=== PATIENT | male | born 1945 | race Caucasian/White ===

== ENCOUNTER 2018-09-04 21:29 | Inpatient (IN) | payer MEDICARE, MEDICAID, OTHER ==
[~2018-09-04] VITALS: Ht 185.4 cm; Wt 135.4 kg
[2018-09-04] MEDS ORDERED: PROPOFOL 100 ML IV ONE (21:53)
--- NOTE | 2018-09-04 21:57 | NUR ---
PT BROUGHT IN BY [facility] FROM [facility] WITH C/O COPD EXACERBATION, PT INTUBATED SEE MD BAIRON AT BEDSIDE, PT IN NAD AT THIS TIME
[2018-09-04] MEDS ORDERED: PROPOFOL 100 ML IV PRN (22:00)
[2018-09-04] MEDS ORDERED: PLEASE ENTER ALLERGIES MC SCH (22:00)
[2018-09-04] MEDS ORDERED: POTA99TA24 PO (22:09)
[2018-09-04] MEDS ORDERED: CALC-112 PO (22:10)
[2018-09-04] MEDS ORDERED: ATOR40TA78 PO (22:10)
[2018-09-04] MEDS ORDERED: FURO20TA3 PO (22:11)
[2018-09-04] MEDS ORDERED: OMEP-110 PO (22:12)
--- NOTE | 2018-09-04 22:12 | NUR ---
pt tolerating vent in nad at this time
[2018-09-04 22:35] LABS: TROPONIN I 0.155 ng/mL (0.000-0.045)
[2018-09-04 22:37] LABS: MICROSCOPIC INDICATED
--- NOTE | 2018-09-04 22:39 | NUR ---
pt bp dropped to 79/34 md notified set up for central line at this time
--- NOTE | 2018-09-04 22:40 | NUR ---
pt in icu bed on all monitors
--- NOTE | 2018-09-04 22:48 | NUR ---
PT HAS FRAZIER CATH THAT WAS PLACE IN [facility] SENT
[2018-09-04 22:55] LABS: CULTURE INDICATED? YES
[2018-09-04] MEDS ORDERED: SENNA 176 MG/5 ML ORAL SOL NG PRN (23:00)
[2018-09-04] MEDS ORDERED: DEXTROSE 50%, 50ML SYRINGE IVPush PRN (23:00)
[2018-09-04] MEDS ORDERED: ALBUTEROL/IPRATROPIUM 2.5MG/0.5MG, 3 ML INLINE SCH (23:00)
[2018-09-04] MEDS ORDERED: DEXTROSE 4 GM TAB.CHEW PO PRN (23:00)
[2018-09-04] MEDS ORDERED: BISACODYL 10 MG SUPP PR PRN (23:00)
[2018-09-04] MEDS ORDERED: SODIUM CHLORIDE 0.9% 1,000 ML IV SCH (23:00)
[2018-09-04] MEDS ORDERED: LACTULOSE 20 GM/30 ML UDC NG PRN (23:00)
[2018-09-04] MEDS: ALBUTEROL/IPRATROPIUM 2.5MG/0.5MG, 3 ML NPPB SCH (23:00)
[2018-09-04] MEDS ORDERED: ALBUTEROL/IPRATROPIUM 2.5MG/0.5MG, 3 ML NPPB SCH (23:00)
[2018-09-04] MEDS ORDERED: LIDOCAINE-MPF 1%, 2ML ENDO PRN (23:00)
[2018-09-04] MEDS ORDERED: ZOSYN PER PHARMACY MC PRN (23:00)
[2018-09-04] MEDS ORDERED: PHARMACY MAY ADJ FOR RENAL FX MC SCH (23:00)
[2018-09-04] MEDS ORDERED: SENNA/DOCUSATE TABLET NG PRN (23:00)
[2018-09-04] MEDS ORDERED: GLUCAGON 1 MG IM PRN (23:00)
[2018-09-04 23:34] LABS: BASOPHILS % (AUTO) 0 % (0-1); EOSINOPHILS # (AUTO) 0.01 x10^3/uL (0-0.4); EOSINOPHILS % (AUTO) 0 % (1-7); LYMPHOCYTES # (AUTO) 0.66 x10^3/uL (1-3.4); LYMPHOCYTES % (AUTO) 5 % (22-44); MD NO; MEAN CORPUSCULAR HEMOGLOBIN 29.3 pg (27.5-34.5); MEAN CORPUSCULAR HGB CONC 32.5 g/dL (33.2-36.2); MEAN CORPUSCULAR VOLUME 90.2 fL (81-97); MEAN PLATELET VOLUME 7.8 fL (7.4-10.4); MONOCYTES # (AUTO) 0.28 x10^3/uL (0.2-0.8); MONOCYTES % (AUTO) 2 % (2-9); NEUTROPHILS # (AUTO) 13.17 x10^3/uL (1.8-6.8); NEUTROPHILS % (AUTO) 93 % (42-75); PLATELET COUNT 243 x10^3/uL (130-400); RED BLOOD COUNT 4.85 x10^6/uL (4.38-5.82); RED CELL DISTRIBUTION WIDTH 12.5 % (9.4-14.8)
[2018-09-04 23:43] LABS: PROTHROMBIN TIME 10.5 Seconds (9.6-11.5)
[2018-09-04 23:46] LABS: ANION GAP 1 mmol/L (5-15); CALCIUM 8.3 mg/dL (8.5-10.1); CHLORIDE 103 mmol/L (98-107); CREATININE 1.12 mg/dL (0.7-1.3); TRIGLYCERIDES 106 mg/dL (50-200)
[2018-09-04 23:50] LABS: TROPONIN I 0.259 ng/mL (0.000-0.045)
[2018-09-04] MEDS ORDERED: MIDAZOLAM 1 MG/ML, 2ML ONE (23:59)
--- NOTE | 2018-09-05 00:04 | NUR ---
DR STEVEN AT FOR CL PLACMENT
--- NOTE | 2018-09-05 00:20 | NUR ---
levophed gtt started per md order
[2018-09-05] MEDS ORDERED: NOREPINEPHRINE 4 MG in SODIUM CHLORIDE 0.9% 246 ML IV PRN ×2 (00:30→07:00)
[2018-09-05] MEDS ORDERED: MIDAZOLAM 1 MG/ML, 5ML IVPush ONE ×2 (00:30)
[2018-09-05] MEDS ORDERED: SODIUM CHLORIDE 0.9% 1,000ML IVBOLUS ONE ×2 (00:30)
--- NOTE | 2018-09-05 00:45 | NUR ---
pt to icu in nad
[2018-09-05] MEDS: PIPERACILLIN/TAZO/PMX 3.375GM 50 ML IV SCH ×3 (01:21→16:53)
[2018-09-05] MEDS: PROPOFOL 100 ML IV PRN ×5 (01:22→20:52)
[2018-09-05] MEDS: methylPREDNISolone SOD SUCC 125 MG/2 ML IVPush SCH ×3 (01:27→16:53)
[2018-09-05] MEDS: FAMOTIDINE 20 MG/2 ML IV SCH ×2 (01:27→13:38)
[2018-09-05] MEDS: HEPARIN 5,000 UNITS/ML, 1ML SQ SCH ×3 (01:27→16:55)
[2018-09-05 02:15] VITALS: BP 121/55
[2018-09-05] MEDS: ALBUTEROL/IPRATROPIUM 2.5MG/0.5MG, 3 ML NPPB SCH ×6 (02:29→22:14)
[2018-09-05] MEDS: LINEZOLID PMX 600MG/300ML 300 ML IV SCH ×2 (02:34→15:50)
[2018-09-05 04:23] LABS: MEAN CORPUSCULAR HEMOGLOBIN 29.6 pg (27.5-34.5); MEAN CORPUSCULAR VOLUME 89.7 fL (81-97); MEAN PLATELET VOLUME 7.4 fL (7.4-10.4); PLATELET COUNT 245 x10^3/uL (130-400); RED BLOOD COUNT 4.85 x10^6/uL (4.38-5.82); RED CELL DISTRIBUTION WIDTH 12.9 % (9.4-14.8)
[2018-09-05 04:34] LABS: ALANINE AMINOTRANSFERASE 58 U/L (12-78); ALBUMIN 3.1 g/dL (3.4-5.0); ANION GAP 2 mmol/L (5-15); CALCIUM 8.2 mg/dL (8.5-10.1); CHLORIDE 102 mmol/L (98-107); CREATININE 1.21 mg/dL (0.7-1.3)
[2018-09-05 04:38] LABS: ALKALINE PHOSPHATASE 54 U/L (45-117); BILIRUBIN,TOTAL 0.8 mg/dL (0.2-1.0); TOTAL PROTEIN 7.3 g/dL (6.4-8.2); TROPONIN I 0.323 ng/mL (0.000-0.045)
[2018-09-05] MEDS: INSULIN LISPRO 100 UNITS/ML, PEN SQ-INSULIN SCH ×4 (04:39→22:06)
[2018-09-05] MEDS ORDERED: MAGNESIUM SULFATE PMX 2GM/50ML 50 ML ONE (04:49)
[2018-09-05] MEDS ORDERED: MAGNESIUM SULFATE PMX 2GM/50ML 50 ML IV ONE (05:00)
[2018-09-05 06:03] LABS: MD SCAN
[2018-09-05 06:05] LABS: BASOPHILS # (AUTO) 0.03 x10^3/uL (0-0.1); BASOPHILS % (AUTO) 0 % (0-1); EOSINOPHILS % (AUTO) 0 % (1-7); LYMPHOCYTES # (AUTO) 0.72 x10^3/uL (1-3.4); LYMPHOCYTES % (AUTO) 5 % (22-44); MONOCYTES # (AUTO) 0.04 x10^3/uL (0.2-0.8); MONOCYTES % (AUTO) 0 % (2-9); NEUTROPHILS # (AUTO) 15.32 x10^3/uL (1.8-6.8); NEUTROPHILS % (AUTO) 95 % (42-75)
[2018-09-05] MEDS ORDERED: INSULIN LISPRO 100 UNITS/ML, PEN SQ-INSULIN SCH (07:00)
[2018-09-05] MEDS: BUDESONIDE 0.5 MG/2 ML INHA INH SCH ×2 (07:00→21:00)
[2018-09-05] MEDS: SODIUM CHLORIDE FLUSH 10ML SYR IVF SCH ×2 (08:38→22:01)
--- NOTE | 2018-09-05 09:47 | NUR ---
TF GOAL: with or without propofol: VITAL HIGH PROTEIN @ 80ML/HR
[2018-09-05 11:10] LABS: TROPONIN I 0.205 ng/mL (0.000-0.045)
[2018-09-05] MEDS: FENTANYL PF 100 MCG/2ML IVPush PRN ×3 (16:55→22:00)
[2018-09-06] MEDS: PROPOFOL 100 ML IV PRN ×5 (00:46→22:14)
[2018-09-06] MEDS: PIPERACILLIN/TAZO/PMX 3.375GM 50 ML IV SCH ×3 (01:44→17:26)
[2018-09-06] MEDS: FAMOTIDINE 20 MG/2 ML IV SCH ×2 (01:44→12:15)
[2018-09-06] MEDS: HEPARIN 5,000 UNITS/ML, 1ML SQ SCH ×3 (01:45→16:24)
[2018-09-06] MEDS: methylPREDNISolone SOD SUCC 125 MG/2 ML IVPush SCH ×3 (01:46→16:24)
[2018-09-06] MEDS: FENTANYL PF 100 MCG/2ML IVPush PRN ×3 (02:01→12:15)
[2018-09-06] MEDS: ALBUTEROL/IPRATROPIUM 2.5MG/0.5MG, 3 ML NPPB SCH ×6 (02:48→23:20)
[2018-09-06 04:58] LABS: ANION GAP 4 mmol/L (5-15); CALCIUM 8.4 mg/dL (8.5-10.1); CHLORIDE 101 mmol/L (98-107); CREATININE 1.28 mg/dL (0.7-1.3)
[2018-09-06 05:03] LABS: BASOPHILS % (AUTO) 0 % (0-1); EOSINOPHILS % (AUTO) 0 % (1-7); LYMPHOCYTES # (AUTO) 0.53 x10^3/uL (1-3.4); LYMPHOCYTES % (AUTO) 3 % (22-44); MD NO; MEAN CORPUSCULAR HGB CONC 32.6 g/dL (33.2-36.2); MEAN CORPUSCULAR VOLUME 88.8 fL (81-97); MEAN PLATELET VOLUME 7.9 fL (7.4-10.4); MONOCYTES # (AUTO) 0.45 x10^3/uL (0.2-0.8); MONOCYTES % (AUTO) 3 % (2-9); NEUTROPHILS # (AUTO) 15.27 x10^3/uL (1.8-6.8); NEUTROPHILS % (AUTO) 94 % (42-75); PLATELET COUNT 223 x10^3/uL (130-400); RED BLOOD COUNT 4.66 x10^6/uL (4.38-5.82); RED CELL DISTRIBUTION WIDTH 12.4 % (9.4-14.8)
[2018-09-06] MEDS: LINEZOLID PMX 600MG/300ML 300 ML IV SCH ×2 (05:13→18:24)
[2018-09-06] MEDS: INSULIN LISPRO 100 UNITS/ML, PEN SQ-INSULIN SCH ×4 (05:15→21:44)
[2018-09-06] MEDS: SODIUM CHLORIDE 0.9% 1,000 ML IV SCH (05:16)
[2018-09-06] MEDS: BUDESONIDE 0.5 MG/2 ML INHA INH SCH ×2 (07:18→23:20)
[2018-09-06] MEDS ORDERED: POTASSIUM PHOSPHATE 44 MEQ in SODIUM CHLORIDE 0.9% 500 ML IV ONE (09:00)
[2018-09-06] MEDS: SODIUM CHLORIDE FLUSH 10ML SYR IVF SCH ×2 (09:05→21:43)
[2018-09-06] MEDS ORDERED: hydrALAzine 20 MG/ML, 1ML IV PRN (15:00)
[2018-09-07] MEDS: FAMOTIDINE 20 MG/2 ML IV SCH ×2 (00:57→14:01)
[2018-09-07] MEDS: PROPOFOL 100 ML IV PRN ×3 (00:57→06:16)
[2018-09-07] MEDS: PIPERACILLIN/TAZO/PMX 3.375GM 50 ML IV SCH ×3 (00:58→16:48)
[2018-09-07] MEDS: methylPREDNISolone SOD SUCC 125 MG/2 ML IVPush SCH ×3 (01:00→16:48)
[2018-09-07] MEDS: HEPARIN 5,000 UNITS/ML, 1ML SQ SCH ×3 (01:00→16:48)
[2018-09-07] MEDS: ALBUTEROL/IPRATROPIUM 2.5MG/0.5MG, 3 ML NPPB SCH ×6 (02:27→23:04)
[2018-09-07] MEDS: INSULIN LISPRO 100 UNITS/ML, PEN SQ-INSULIN SCH ×4 (03:36→20:38)
[2018-09-07] MEDS: FENTANYL PF 100 MCG/2ML IVPush PRN (03:40)
[2018-09-07 03:44] LABS: MEAN CORPUSCULAR HEMOGLOBIN 29.5 pg (27.5-34.5); MEAN CORPUSCULAR HGB CONC 32.7 g/dL (33.2-36.2); MEAN CORPUSCULAR VOLUME 90.3 fL (81-97); PLATELET COUNT 242 x10^3/uL (130-400); RED BLOOD COUNT 5.38 x10^6/uL (4.38-5.82); RED CELL DISTRIBUTION WIDTH 12.9 % (9.4-14.8)
[2018-09-07 03:46] LABS: ANION GAP 7 mmol/L (5-15); CALCIUM 8.5 mg/dL (8.5-10.1); CHLORIDE 100 mmol/L (98-107); CREATININE 1.28 mg/dL (0.7-1.3); TRIGLYCERIDES 210 mg/dL (50-200)
[2018-09-07 04:05] LABS: BASOPHILS # (AUTO) 0.02 x10^3/uL (0-0.1); BASOPHILS % (AUTO) 0 % (0-1); EOSINOPHILS % (AUTO) 0 % (1-7); LYMPHOCYTES % (AUTO) 4 % (22-44); MD SCAN; MONOCYTES # (AUTO) 0.89 x10^3/uL (0.2-0.8); MONOCYTES % (AUTO) 5 % (2-9); NEUTROPHILS # (AUTO) 16.46 x10^3/uL (1.8-6.8); NEUTROPHILS % (AUTO) 91 % (42-75)
[2018-09-07] MEDS: SODIUM CHLORIDE 0.9% 1,000 ML IV SCH (04:49)
[2018-09-07] MEDS: LINEZOLID PMX 600MG/300ML 300 ML IV SCH ×2 (05:52→18:05)
[2018-09-07] MEDS: BUDESONIDE 0.5 MG/2 ML INHA INH SCH ×2 (07:05→18:30)
[2018-09-07] MEDS ORDERED: FUROSEMIDE 20 MG/2 ML ONE (09:15)
[2018-09-07] MEDS: SODIUM CHLORIDE FLUSH 10ML SYR IVF SCH ×2 (09:17→20:36)
[2018-09-07] MEDS ORDERED: FUROSEMIDE 20 MG/2 ML IV ONE (09:30)
[2018-09-07] MEDS ORDERED: ALBUTEROL/IPRATROPIUM 2.5MG/0.5MG, 3 ML ONE (10:22)
[2018-09-07] MEDS ORDERED: CALCIUM CARBONATE 500 MG TAB.CHEW ONE (22:26)
[2018-09-08] MEDS: FAMOTIDINE 20 MG/2 ML IV SCH ×2 (01:04→14:03)
[2018-09-08] MEDS: PIPERACILLIN/TAZO/PMX 3.375GM 50 ML IV SCH ×2 (01:04→09:28)
[2018-09-08] MEDS: methylPREDNISolone SOD SUCC 125 MG/2 ML IVPush SCH ×3 (01:06→16:26)
[2018-09-08] MEDS: HEPARIN 5,000 UNITS/ML, 1ML SQ SCH ×2 (01:07→09:31)
[2018-09-08] MEDS: CALCIUM CARBONATE 500 MG TAB.CHEW PO PRN ×2 (01:08→18:48)
[2018-09-08] MEDS: ALBUTEROL/IPRATROPIUM 2.5MG/0.5MG, 3 ML NPPB SCH ×6 (02:08→22:14)
[2018-09-08 04:31] LABS: BASOPHILS # (AUTO) 0.03 x10^3/uL (0-0.1); BASOPHILS % (AUTO) 0 % (0-1); EOSINOPHILS % (AUTO) 0 % (1-7); LYMPHOCYTES # (AUTO) 0.52 x10^3/uL (1-3.4); LYMPHOCYTES % (AUTO) 3 % (22-44); MD NO; MEAN CORPUSCULAR HEMOGLOBIN 29.4 pg (27.5-34.5); MEAN CORPUSCULAR VOLUME 89.3 fL (81-97); MONOCYTES # (AUTO) 0.72 x10^3/uL (0.2-0.8); MONOCYTES % (AUTO) 4 % (2-9); NEUTROPHILS # (AUTO) 16.26 x10^3/uL (1.8-6.8); NEUTROPHILS % (AUTO) 93 % (42-75); PLATELET COUNT 237 x10^3/uL (130-400); RED BLOOD COUNT 5.17 x10^6/uL (4.38-5.82); RED CELL DISTRIBUTION WIDTH 12.8 % (9.4-14.8)
[2018-09-08 04:37] LABS: ANION GAP 8 mmol/L (5-15); CALCIUM 8.9 mg/dL (8.5-10.1); CHLORIDE 98 mmol/L (98-107); CREATININE 1.24 mg/dL (0.7-1.3)
[2018-09-08] MEDS: LINEZOLID PMX 600MG/300ML 300 ML IV SCH (05:24)
[2018-09-08] MEDS: INSULIN LISPRO 100 UNITS/ML, PEN SQ-INSULIN SCH ×4 (05:28→22:50)
[2018-09-08] MEDS: BUDESONIDE 0.5 MG/2 ML INHA INH SCH ×2 (06:03→18:25)
[2018-09-08] MEDS: SODIUM CHLORIDE FLUSH 10ML SYR IVF SCH ×2 (09:28→20:16)
[2018-09-08] MEDS ORDERED: FUROSEMIDE 20 MG/2 ML IV ONE (11:30)
[2018-09-08 13:30] VITALS: BP 147/83
[2018-09-08 14:00] VITALS: BP 148/81
[2018-09-08] MEDS: CEFTRIAXONE PMX 2GM/50ML 50 ML IVPB SCH (14:02)
[2018-09-08] MEDS: HYDROcodone/APAP 5/325 TABLET PO PRN ×3 (14:20→22:38)
[2018-09-08] MEDS: ENOXAPARIN 40 MG/0.4 ML SQ SCH (16:26)
[2018-09-08 18:44] VITALS: BP 148/93
[2018-09-08] MEDS ORDERED: ONDANSETRON ODT 4 MG PO PRN (20:00)
[2018-09-09] MEDS: methylPREDNISolone SOD SUCC 125 MG/2 ML IVPush SCH ×3 (00:07→16:00)
[2018-09-09 00:58] VITALS: BP 178/105
[2018-09-09 01:06] VITALS: BP 123/76
[2018-09-09] MEDS: ALBUTEROL/IPRATROPIUM 2.5MG/0.5MG, 3 ML NPPB SCH ×6 (02:31→22:30)
[2018-09-09 04:34] VITALS: BP 154/83
[2018-09-09] MEDS: CALCIUM CARBONATE 500 MG TAB.CHEW PO PRN ×3 (04:50→19:57)
[2018-09-09] MEDS: INSULIN LISPRO 100 UNITS/ML, PEN SQ-INSULIN SCH ×4 (04:50→23:00)
[2018-09-09] MEDS: HYDROcodone/APAP 5/325 TABLET PO PRN ×2 (04:57→11:20)
[2018-09-09 05:29] LABS: BASOPHILS # (AUTO) 0.03 x10^3/uL (0-0.1); BASOPHILS % (AUTO) 0 % (0-1); EOSINOPHILS % (AUTO) 0 % (1-7); LYMPHOCYTES # (AUTO) 0.56 x10^3/uL (1-3.4); LYMPHOCYTES % (AUTO) 4 % (22-44); MD NO; MEAN CORPUSCULAR HEMOGLOBIN 29.6 pg (27.5-34.5); MEAN CORPUSCULAR HGB CONC 33.3 g/dL (33.2-36.2); MEAN CORPUSCULAR VOLUME 88.7 fL (81-97); MEAN PLATELET VOLUME 7.7 fL (7.4-10.4); MONOCYTES # (AUTO) 0.75 x10^3/uL (0.2-0.8); MONOCYTES % (AUTO) 5 % (2-9); NEUTROPHILS # (AUTO) 14.43 x10^3/uL (1.8-6.8); NEUTROPHILS % (AUTO) 92 % (42-75); PLATELET COUNT 272 x10^3/uL (130-400); RED BLOOD COUNT 5.07 x10^6/uL (4.38-5.82); RED CELL DISTRIBUTION WIDTH 12.9 % (9.4-14.8)
[2018-09-09 05:42] LABS: ALANINE AMINOTRANSFERASE 548 U/L (12-78); ALBUMIN 2.9 g/dL (3.4-5.0); ANION GAP 6 mmol/L (5-15); CALCIUM 8.8 mg/dL (8.5-10.1); CHLORIDE 97 mmol/L (98-107)
[2018-09-09 05:45] LABS: ALKALINE PHOSPHATASE 50 U/L (45-117); BILIRUBIN,TOTAL 1.1 mg/dL (0.2-1.0); CREATININE 1.29 mg/dL (0.7-1.3)
[2018-09-09 07:08] VITALS: BP 127/79
[2018-09-09] MEDS: SODIUM CHLORIDE FLUSH 10ML SYR IVF SCH ×2 (07:19→19:57)
[2018-09-09] MEDS: BUDESONIDE 0.5 MG/2 ML INHA INH SCH ×2 (07:40→18:51)
[2018-09-09] MEDS: CEFTRIAXONE PMX 2GM/50ML 50 ML IVPB SCH (12:59)
[2018-09-09 15:15] VITALS: BP 135/80
[2018-09-09] MEDS: ENOXAPARIN 40 MG/0.4 ML SQ SCH (17:44)
[2018-09-09] MEDS: OXYcodone IR 5MG TABLET PO PRN ×2 (17:44→23:51)
[2018-09-09 19:34] VITALS: BP 132/73
[2018-09-09] MEDS ORDERED: methylPREDNISolone SOD SUCC 40 MG/ML IVPush SCH (21:00)
[2018-09-10 01:13] VITALS: BP 150/96
[2018-09-10] MEDS: ALBUTEROL/IPRATROPIUM 2.5MG/0.5MG, 3 ML NPPB SCH ×6 (03:03→22:32)
[2018-09-10] MEDS: CALCIUM CARBONATE 500 MG TAB.CHEW PO PRN ×3 (04:43→17:50)
[2018-09-10] MEDS: INSULIN LISPRO 100 UNITS/ML, PEN SQ-INSULIN SCH ×4 (05:00→23:00)
[2018-09-10 05:05] LABS: BASOPHILS # (AUTO) 0.01 x10^3/uL (0-0.1); BASOPHILS % (AUTO) 0 % (0-1); EOSINOPHILS % (AUTO) 0 % (1-7); LYMPHOCYTES # (AUTO) 0.63 x10^3/uL (1-3.4); LYMPHOCYTES % (AUTO) 4 % (22-44); MD NO; MEAN CORPUSCULAR HEMOGLOBIN 29.7 pg (27.5-34.5); MEAN CORPUSCULAR HGB CONC 33.1 g/dL (33.2-36.2); MEAN CORPUSCULAR VOLUME 89.6 fL (81-97); MEAN PLATELET VOLUME 7.9 fL (7.4-10.4); MONOCYTES # (AUTO) 0.88 x10^3/uL (0.2-0.8); MONOCYTES % (AUTO) 6 % (2-9); NEUTROPHILS # (AUTO) 14.09 x10^3/uL (1.8-6.8); NEUTROPHILS % (AUTO) 90 % (42-75); PLATELET COUNT 252 x10^3/uL (130-400); RED BLOOD COUNT 5.09 x10^6/uL (4.38-5.82); RED CELL DISTRIBUTION WIDTH 12.4 % (9.4-14.8)
[2018-09-10 05:11] LABS: ANION GAP 3 mmol/L (5-15); CHLORIDE 95 mmol/L (98-107)
[2018-09-10 05:21] LABS: % IRON SATURATION 46 % (20-55); ALANINE AMINOTRANSFERASE 469 U/L (12-78); ALKALINE PHOSPHATASE 50 U/L (45-117); BILIRUBIN,TOTAL 0.8 mg/dL (0.2-1.0); CREATINE KINASE, TOTAL 136 U/L (39-308); CREATININE 1.02 mg/dL (0.7-1.3); IRON LEVEL 126 mcg/dL (65-175); TOTAL IRON BINDING CAPACITY 275 mcg/dL (250-450); TOTAL PROTEIN 7.1 g/dL (6.4-8.2)
[2018-09-10 06:54] VITALS: BP 118/71
[2018-09-10] MEDS: BUDESONIDE 0.5 MG/2 ML INHA INH SCH ×2 (07:07→18:41)
[2018-09-10] MEDS: DOXYCYCLINE 100MG TABLET PO SCH ×2 (07:54→21:31)
[2018-09-10] MEDS: SODIUM CHLORIDE FLUSH 10ML SYR IVF SCH ×2 (07:54→21:31)
[2018-09-10 09:15] LABS: ALBUMIN 3.3 g/dL (3.4-5.0); ANION GAP 6 mmol/L (5-15); CALCIUM 9.3 mg/dL (8.5-10.1); CHLORIDE 94 mmol/L (98-107)
[2018-09-10 09:20] LABS: ALANINE AMINOTRANSFERASE 508 U/L (12-78); ALKALINE PHOSPHATASE 59 U/L (45-117); CREATININE 1.07 mg/dL (0.7-1.3); TOTAL PROTEIN 7.7 g/dL (6.4-8.2)
[2018-09-10 12:06] VITALS: BP 144/79
[2018-09-10] MEDS: CEFTRIAXONE PMX 2GM/50ML 50 ML IVPB SCH (13:12)
[2018-09-10] MEDS: OXYcodone IR 5MG TABLET PO PRN ×2 (14:59→21:31)
[2018-09-10] MEDS: ENOXAPARIN 40 MG/0.4 ML SQ SCH (17:46)
[2018-09-10 19:18] VITALS: BP 137/72
[2018-09-11 00:52] VITALS: BP 132/67
[2018-09-11] MEDS: ALBUTEROL/IPRATROPIUM 2.5MG/0.5MG, 3 ML NPPB SCH ×6 (02:30→23:00)
[2018-09-11] MEDS: CALCIUM CARBONATE 500 MG TAB.CHEW PO PRN ×3 (02:51→21:58)
[2018-09-11] MEDS: OXYcodone IR 5MG TABLET PO PRN ×2 (04:25→17:31)
[2018-09-11] MEDS: INSULIN LISPRO 100 UNITS/ML, PEN SQ-INSULIN SCH ×2 (05:00→14:01)
[2018-09-11] MEDS: BUDESONIDE 0.5 MG/2 ML INHA INH SCH ×2 (06:27→19:10)
[2018-09-11 06:39] VITALS: BP 156/93
[2018-09-11] MEDS: DOXYCYCLINE 100MG TABLET PO SCH ×2 (08:23→20:50)
[2018-09-11] MEDS: SODIUM CHLORIDE FLUSH 10ML SYR IVF SCH ×2 (08:24→20:50)
[2018-09-11 09:01] LABS: ALANINE AMINOTRANSFERASE 453 U/L (12-78); ALBUMIN 2.9 g/dL (3.4-5.0); ANION GAP 7 mmol/L (5-15); CALCIUM 8.9 mg/dL (8.5-10.1); CHLORIDE 95 mmol/L (98-107); CREATININE 0.96 mg/dL (0.7-1.3)
[2018-09-11 09:02] LABS: ALKALINE PHOSPHATASE 57 U/L (45-117); BILIRUBIN,TOTAL 1.1 mg/dL (0.2-1.0); TOTAL PROTEIN 6.6 g/dL (6.4-8.2)
[2018-09-11 09:17] LABS: BASOPHILS # (AUTO) 0.03 x10^3/uL (0-0.1); BASOPHILS % (AUTO) 0 % (0-1); EOSINOPHILS # (AUTO) 0.07 x10^3/uL (0-0.4); EOSINOPHILS % (AUTO) 1 % (1-7); HEMOGRAM NOTE RECHECKED; LYMPHOCYTES # (AUTO) 1.58 x10^3/uL (1-3.4); LYMPHOCYTES % (AUTO) 13 % (22-44); MD NO; MEAN CORPUSCULAR HEMOGLOBIN 28.8 pg (27.5-34.5); MEAN CORPUSCULAR HGB CONC 32.5 g/dL (33.2-36.2); MEAN CORPUSCULAR VOLUME 88.4 fL (81-97); MEAN PLATELET VOLUME 7.4 fL (7.4-10.4); MONOCYTES # (AUTO) 1.16 x10^3/uL (0.2-0.8); MONOCYTES % (AUTO) 10 % (2-9); NEUTROPHILS # (AUTO) 8.98 x10^3/uL (1.8-6.8); NEUTROPHILS % (AUTO) 76 % (42-75); PLATELET COUNT 217 x10^3/uL (130-400); RED BLOOD COUNT 5.06 x10^6/uL (4.38-5.82); RED CELL DISTRIBUTION WIDTH 12.7 % (9.4-14.8)
[2018-09-11] MEDS ORDERED: SINCALIDE (KINEVAC) 5 MCG ONE (10:00)
[2018-09-11 12:04] VITALS: BP 159/90
[2018-09-11] MEDS: CEFTRIAXONE PMX 2GM/50ML 50 ML IVPB SCH (14:02)
[2018-09-11] MEDS: ENOXAPARIN 40 MG/0.4 ML SQ SCH (17:31)
[2018-09-11 19:38] VITALS: BP 145/92
[2018-09-12] MEDS: OXYcodone IR 5MG TABLET PO PRN ×3 (00:30→16:20)
[2018-09-12 01:08] VITALS: BP 138/87
[2018-09-12 05:51] LABS: ALANINE AMINOTRANSFERASE 494 U/L (12-78); ALBUMIN 2.9 g/dL (3.4-5.0); ANION GAP 6 mmol/L (5-15); CHLORIDE 95 mmol/L (98-107); CREATININE 0.94 mg/dL (0.7-1.3)
[2018-09-12 05:54] LABS: ALKALINE PHOSPHATASE 48 U/L (45-117); TOTAL PROTEIN 6.4 g/dL (6.4-8.2)
[2018-09-12] MEDS: ALBUTEROL/IPRATROPIUM 2.5MG/0.5MG, 3 ML NPPB SCH ×5 (06:00→23:05)
[2018-09-12 06:23] LABS: MEAN CORPUSCULAR HEMOGLOBIN 29.8 pg (27.5-34.5); MEAN CORPUSCULAR HGB CONC 33.3 g/dL (33.2-36.2); MEAN CORPUSCULAR VOLUME 89.3 fL (81-97); PLATELET COUNT 234 x10^3/uL (130-400); RED BLOOD COUNT 5.11 x10^6/uL (4.38-5.82); RED CELL DISTRIBUTION WIDTH 12.6 % (9.4-14.8)
[2018-09-12] MEDS: BUDESONIDE 0.5 MG/2 ML INHA INH SCH ×2 (06:30→19:10)
[2018-09-12 06:39] LABS: BASOPHILS # (AUTO) 0.01 x10^3/uL (0-0.1); BASOPHILS % (AUTO) 0 % (0-1); EOSINOPHILS # (AUTO) 0.06 x10^3/uL (0-0.4); EOSINOPHILS % (AUTO) 0 % (1-7); LYMPHOCYTES # (AUTO) 1.37 x10^3/uL (1-3.4); LYMPHOCYTES % (AUTO) 8 % (22-44); MD NO; MONOCYTES # (AUTO) 1.64 x10^3/uL (0.2-0.8); MONOCYTES % (AUTO) 10 % (2-9); NEUTROPHILS # (AUTO) 13.28 x10^3/uL (1.8-6.8); NEUTROPHILS % (AUTO) 81 % (42-75)
[2018-09-12] MEDS: CALCIUM CARBONATE 500 MG TAB.CHEW PO PRN (08:12)
[2018-09-12] MEDS: DOXYCYCLINE 100MG TABLET PO SCH ×2 (08:13→21:11)
[2018-09-12] MEDS: SODIUM CHLORIDE FLUSH 10ML SYR IVF SCH ×2 (08:13→21:12)
[2018-09-12 08:27] VITALS: BP 124/82
[2018-09-12] MEDS: MAALOX/HYOSCYAMINE/LIDOCAINE 45 ML BTL PO PRN (10:49)
[2018-09-12] MEDS: CEFTRIAXONE PMX 2GM/50ML 50 ML IVPB SCH (14:56)
[2018-09-12 15:34] VITALS: BP 159/90
[2018-09-12] MEDS: OMEPRAZOLE 20 MG CAPSULE.DR PO SCH (16:20)
[2018-09-12] MEDS: ENOXAPARIN 40 MG/0.4 ML SQ SCH (17:27)
[2018-09-12 19:04] VITALS: BP 153/87
[2018-09-12 19:10] VITALS: BP 153/87
[2018-09-13 01:11] VITALS: BP 149/82
[2018-09-13] MEDS: OXYcodone IR 5MG TABLET PO PRN ×3 (02:29→18:52)
[2018-09-13] MEDS: OMEPRAZOLE 20 MG CAPSULE.DR PO SCH ×2 (05:28→15:49)
[2018-09-13 05:32] LABS: BASOPHILS # (AUTO) 0.03 x10^3/uL (0-0.1); BASOPHILS % (AUTO) 0 % (0-1); EOSINOPHILS # (AUTO) 0.11 x10^3/uL (0-0.4); EOSINOPHILS % (AUTO) 1 % (1-7); LYMPHOCYTES # (AUTO) 1.75 x10^3/uL (1-3.4); LYMPHOCYTES % (AUTO) 13 % (22-44); MD NO; MEAN CORPUSCULAR HEMOGLOBIN 28.9 pg (27.5-34.5); MEAN CORPUSCULAR HGB CONC 32.6 g/dL (33.2-36.2); MEAN CORPUSCULAR VOLUME 88.5 fL (81-97); MEAN PLATELET VOLUME 7.5 fL (7.4-10.4); MONOCYTES # (AUTO) 1.16 x10^3/uL (0.2-0.8); MONOCYTES % (AUTO) 9 % (2-9); NEUTROPHILS # (AUTO) 10.51 x10^3/uL (1.8-6.8); NEUTROPHILS % (AUTO) 78 % (42-75); PLATELET COUNT 219 x10^3/uL (130-400); RED BLOOD COUNT 5.05 x10^6/uL (4.38-5.82); RED CELL DISTRIBUTION WIDTH 12.4 % (9.4-14.8)
[2018-09-13 05:40] LABS: ALBUMIN 2.8 g/dL (3.4-5.0); ANION GAP 6 mmol/L (5-15); CALCIUM 8.8 mg/dL (8.5-10.1); CHLORIDE 93 mmol/L (98-107)
[2018-09-13 05:43] LABS: ALANINE AMINOTRANSFERASE 477 U/L (12-78); ALKALINE PHOSPHATASE 58 U/L (45-117); BILIRUBIN,TOTAL 1.3 mg/dL (0.2-1.0); CREATININE 1.01 mg/dL (0.7-1.3); TOTAL PROTEIN 6.4 g/dL (6.4-8.2)
[2018-09-13] MEDS: ALBUTEROL/IPRATROPIUM 2.5MG/0.5MG, 3 ML NPPB SCH ×4 (06:00→19:06)
[2018-09-13 08:20] VITALS: BP 143/85
[2018-09-13] MEDS: DOXYCYCLINE 100MG TABLET PO SCH ×2 (08:24→21:08)
[2018-09-13] MEDS: SODIUM CHLORIDE FLUSH 10ML SYR IVF SCH ×2 (08:31→21:08)
[2018-09-13] MEDS: BUDESONIDE 0.5 MG/2 ML INHA INH SCH ×2 (09:00→19:06)
[2018-09-13 14:20] VITALS: BP 144/82
[2018-09-13] MEDS: CEFTRIAXONE PMX 2GM/50ML 50 ML IVPB SCH (14:31)
[2018-09-13] MEDS: MAALOX/HYOSCYAMINE/LIDOCAINE 45 ML BTL PO PRN (19:39)
[2018-09-13 20:07] VITALS: BP 108/65
[2018-09-13] MEDS: ENOXAPARIN 30 MG/0.3 ML SQ SCH (21:08)
[2018-09-14 02:33] VITALS: BP 123/86
[2018-09-14] MEDS: OXYcodone IR 5MG TABLET PO PRN ×2 (04:50→16:24)
[2018-09-14] MEDS: OMEPRAZOLE 20 MG CAPSULE.DR PO SCH ×2 (04:52→16:24)
[2018-09-14 05:20] LABS: ALBUMIN 3.1 g/dL (3.4-5.0); ANION GAP 6 mmol/L (5-15); CALCIUM 8.8 mg/dL (8.5-10.1); CHLORIDE 97 mmol/L (98-107)
[2018-09-14 05:24] LABS: ALANINE AMINOTRANSFERASE 539 U/L (12-78); ALKALINE PHOSPHATASE 55 U/L (45-117); BILIRUBIN,TOTAL 1.3 mg/dL (0.2-1.0); CREATININE 1.01 mg/dL (0.7-1.3); TOTAL PROTEIN 6.6 g/dL (6.4-8.2)
[2018-09-14 07:30] VITALS: BP 116/80
[2018-09-14] MEDS: ALBUTEROL/IPRATROPIUM 2.5MG/0.5MG, 3 ML NPPB SCH ×4 (07:40→19:22)
[2018-09-14] MEDS: BUDESONIDE 0.5 MG/2 ML INHA INH SCH ×2 (07:40→19:22)
[2018-09-14] MEDS: ENOXAPARIN 30 MG/0.3 ML SQ SCH ×2 (08:26→22:41)
[2018-09-14] MEDS: SODIUM CHLORIDE FLUSH 10ML SYR IVF SCH ×2 (08:26→22:41)
[2018-09-14] MEDS: DOXYCYCLINE 100MG TABLET PO SCH (08:26)
[2018-09-14 13:45] VITALS: BP 121/82
[2018-09-14] MEDS: CEFTRIAXONE PMX 2GM/50ML 50 ML IVPB SCH (14:11)
[2018-09-14] MEDS: MAALOX/HYOSCYAMINE/LIDOCAINE 45 ML BTL PO PRN (17:33)
[2018-09-14 19:49] VITALS: BP 130/85
[2018-09-15 01:24] VITALS: BP 137/80
[2018-09-15] MEDS: OXYcodone IR 5MG TABLET PO PRN ×3 (01:57→17:33)
[2018-09-15] MEDS: OMEPRAZOLE 20 MG CAPSULE.DR PO SCH ×2 (05:56→17:33)
[2018-09-15 06:05] LABS: ALBUMIN 3.2 g/dL (3.4-5.0); ANION GAP 6 mmol/L (5-15); CALCIUM 8.8 mg/dL (8.5-10.1); CHLORIDE 97 mmol/L (98-107)
[2018-09-15 06:08] LABS: ALANINE AMINOTRANSFERASE 520 U/L (12-78); ALKALINE PHOSPHATASE 60 U/L (45-117); BILIRUBIN,TOTAL 1.2 mg/dL (0.2-1.0); CREATININE 1.06 mg/dL (0.7-1.3); TOTAL PROTEIN 6.4 g/dL (6.4-8.2)
[2018-09-15] MEDS: BUDESONIDE 0.5 MG/2 ML INHA INH SCH ×2 (07:05→18:21)
[2018-09-15] MEDS: ALBUTEROL/IPRATROPIUM 2.5MG/0.5MG, 3 ML NPPB SCH ×4 (07:05→18:21)
[2018-09-15 07:20] VITALS: BP 127/81
[2018-09-15] MEDS: ENOXAPARIN 30 MG/0.3 ML SQ SCH ×2 (08:34→20:15)
[2018-09-15] MEDS: SODIUM CHLORIDE FLUSH 10ML SYR IVF SCH ×2 (08:35→20:15)
[2018-09-15 13:40] VITALS: BP 121/80
[2018-09-15 20:54] VITALS: BP 124/84
[2018-09-16 01:10] VITALS: BP 107/63
[2018-09-16] MEDS: OXYcodone IR 5MG TABLET PO PRN ×4 (01:26→21:50)
[2018-09-16 04:47] LABS: ALBUMIN 2.8 g/dL (3.4-5.0); ANION GAP 5 mmol/L (5-15); CALCIUM 8.4 mg/dL (8.5-10.1); CHLORIDE 98 mmol/L (98-107)
[2018-09-16 04:52] LABS: ALANINE AMINOTRANSFERASE 464 U/L (12-78); ALKALINE PHOSPHATASE 62 U/L (45-117); CREATININE 1.14 mg/dL (0.7-1.3); TOTAL PROTEIN 6.2 g/dL (6.4-8.2)
[2018-09-16] MEDS: OMEPRAZOLE 20 MG CAPSULE.DR PO SCH ×2 (06:06→15:31)
[2018-09-16] MEDS: BUDESONIDE 0.5 MG/2 ML INHA INH SCH ×2 (06:45→19:40)
[2018-09-16] MEDS: ALBUTEROL/IPRATROPIUM 2.5MG/0.5MG, 3 ML NPPB SCH ×3 (06:45→19:40)
[2018-09-16 07:46] VITALS: BP 135/84
[2018-09-16] MEDS: ENOXAPARIN 30 MG/0.3 ML SQ SCH (08:47)
[2018-09-16] MEDS: SODIUM CHLORIDE FLUSH 10ML SYR IVF SCH ×2 (08:47→20:56)
[2018-09-16] MEDS ORDERED: FLUT1DIS3 INH (12:27)
[2018-09-16] MEDS ORDERED: PRED10TA PO (12:27)
[2018-09-16] MEDS ORDERED: IPRA3AMP30 NPPB (12:27)
[2018-09-16] MEDS ORDERED: TIOT18CA INH (12:27)
[2018-09-16] MEDS ORDERED: OMEP-110 PO (12:27)
[2018-09-16] MEDS ORDERED: Maalox/Hyoscyamine/Lidocaine PO (12:27)
[2018-09-16 15:21] VITALS: BP 114/65
[2018-09-16 19:12] VITALS: BP 119/68
[2018-09-16] MEDS ORDERED: ENOXAPARIN 40 MG/0.4 ML SQ SCH (21:00)
[2018-09-17 01:23] VITALS: BP 112/62
[2018-09-17 05:46] LABS: CHLORIDE 100 mmol/L (98-107)
[2018-09-17 05:55] LABS: ALANINE AMINOTRANSFERASE 424 U/L (12-78); ALBUMIN 2.8 g/dL (3.4-5.0); ALKALINE PHOSPHATASE 59 U/L (45-117); ANION GAP 7 mmol/L (5-15); CALCIUM 8.3 mg/dL (8.5-10.1); CREATININE 0.98 mg/dL (0.7-1.3); TOTAL PROTEIN 6.1 g/dL (6.4-8.2)
[2018-09-17] MEDS: OMEPRAZOLE 20 MG CAPSULE.DR PO SCH (06:23)
[2018-09-17 06:48] VITALS: BP 109/57
[2018-09-17] MEDS: ALBUTEROL/IPRATROPIUM 2.5MG/0.5MG, 3 ML NPPB SCH (07:44)
[2018-09-17] MEDS: BUDESONIDE 0.5 MG/2 ML INHA INH SCH (07:44)
[2018-09-17] MEDS: OXYcodone IR 5MG TABLET PO PRN (08:14)
[2018-09-17] MEDS: SODIUM CHLORIDE FLUSH 10ML SYR IVF SCH (08:15)
[2018-09-17 12:27] VITALS: BP 134/76
== END 2018-09-17 14:59 | disposition home or self-care (01) | DRG 871 ==
LOC: ED 23:59 → CCU 09-05 00:15 → 3NE 09-08 12:34
PROVIDERS: ADMIT Family Medicine; ATTEND Internal Medicine
PROC: 0BH17EZ Insertion of Endotracheal Airway into Trachea, Via Natural or Artificial Opening (ICD-10-PCS; principal; 2018-09-04)
PROC: 5A1945Z Respiratory Ventilation, 24-96 Consecutive Hours (ICD-10-PCS; 2018-09-04)
PROC: 02HV33Z Insertion of Infusion Device into Superior Vena Cava, Percutaneous Approach (ICD-10-PCS; 2018-09-04)
PROC: B548ZZA Ultrasonography of Superior Vena Cava, Guidance (ICD-10-PCS; 2018-09-04)
PROC: 0T9B70Z Drainage of Bladder with Drainage Device, Via Natural or Artificial Opening (ICD-10-PCS; 2018-09-05)
PROC: 5A09357 Assistance with Respiratory Ventilation, Less than 24 Consecutive Hours, Continuous Positive Airway Pressure (ICD-10-PCS; 2018-09-07)
DX: A41.9 Sepsis, unspecified organism (principal); J18.9 Pneumonia, unspecified organism; J96.21 Acute and chronic respiratory failure with hypoxia; R65.21 Severe sepsis with septic shock; J96.22 Acute and chronic respiratory failure with hypercapnia; E66.2 Morbid (severe) obesity with alveolar hypoventilation; J44.0 Chronic obstructive pulmonary disease with (acute) lower respiratory infection; J44.1 Chronic obstructive pulmonary disease with (acute) exacerbation; J98.11 Atelectasis; K80.21 Calculus of gallbladder without cholecystitis with obstruction; Z99.11 Dependence on respirator [ventilator] status; E78.5 Hyperlipidemia, unspecified; E83.42 Hypomagnesemia; F17.200 Nicotine dependence, unspecified, uncomplicated; I11.9 Hypertensive heart disease without heart failure; K21.9 Gastro-esophageal reflux disease without esophagitis; K76.0 Fatty (change of) liver, not elsewhere classified; Z83.3 Family history of diabetes mellitus; Z68.39 Body mass index [BMI] 39.0-39.9, adult; Z87.11 Personal history of peptic ulcer disease; Z87.440 Personal history of urinary (tract) infections; Z99.81 Dependence on supplemental oxygen
CPT/HCPCS: 36415; 36556; 36600; 71045; 74181; 76700; 78227; 80048; 80053; 80074; 81001; 82550; 82803; 82962; 83540; 83550; 83605; 83690; 83735; 83880; 84100; 84145; 84443; 84478; 84484; 85025; 85610; 85730; 87070; 87077; 87081; 87086; 87186; 87205; 93005; 94002; 94003; 94640; 94660; 96360; C8929; G0378; J0696; J1644; J1650; J2020; J2250; J2543; J2704; J3010; J7620; J7626; Q0162; Q9957; A9537; C9898; J0360; J1815; J1940; J2805; J2920; J2930; J3475; J3490; J7030; J7040; J7050; J7512